=== PATIENT | female | born 1975 | race Asian ===

== ENCOUNTER 2025-04-07 10:10 | Outpatient (CLI) | payer BC ==
[~2025-04-07 10:10] MED LIST: Iopamidol 300 61% 100 ML VIAL FS ONE
== END 2025-04-07 10:11 | disposition home or self-care (01) ==
LOC: CSHCT 10:10
PROVIDERS: ATTEND Obstetrics & Gynecology Gynecologic Oncology
DX: R19.00 Intra-abdominal and pelvic swelling, mass and lump, unspecified site (principal); D48.7 Neoplasm of uncertain behavior of other specified sites
CPT/HCPCS: 74177; Q9967